=== PATIENT | female | born 1990 ===

== ENCOUNTER 2018-11-08 10:53 | Emergency (ER) | payer OTHER ==
[2018-11-08 11:03] VITALS: BP 139/87
--- NOTE | 2018-11-08 11:44 | Emergency Department Report ---
Minor Respiratory - HPI Chief Complaint: Upper Respiratory Infection Stated Complaint: SOB/HEADACHE/COUGH Time Seen by Provider: 11/08/18 11:19 Duration: 1 week Pain Location: Throat Minor Respiratory: Yes Sore Throat, Yes Able to Tolerate Fluids, Yes Cough, Yes Sick Contacts, No Rhinorrhea, No Ear Pain, No Hemoptysis, No Chest Pain, No Shortness of Breath, No Fever Other History: 27-year-old -Serbian female presents to the emergency room for one week history of sore throat, headache, shortness of breath, body aches, painful cough, stuffy nose and coughing up mucus for 1 week. Patient reports taking DayQuil and NyQuil which helps but does not completely goes away. Patient reports she's had some dizziness and sneezing some nausea but no vomiting. ED Review of Systems ROS: Stated complaint: SOB/HEADACHE/COUGH Other details as noted in HPI ENT: throat pain, congestion Respiratory: cough, shortness of breath Cardiovascular: denies: chest pain, palpitations Endocrine: no symptoms reported Gastrointestinal: denies: abdominal pain, nausea, diarrhea Genitourinary: denies: urgency, dysuria, discharge Musculoskeletal: denies: back pain, joint swelling, arthralgia Skin: denies: rash, lesions Neurological: denies: headache, weakness, paresthesias Psychiatric: denies: anxiety, depression Hematological/Lymphatic: denies: easy bleeding, easy bruising ED Past Medical Hx - Past Medical History Previous Medical History?: No - Surgical History Past Surgical History?: No - Social History Smoking Status: Never Smoker Substance Use Type: Alcohol, Marijuana - Medications Home Medications: Home Medications Medication Instructions Recorded Confirmed Last Taken Type Benzonatate [Tessalon Perles] 100 mg PO Q8HR #15 capsule 11/08/18 Unknown Rx Cetirizine HCl [Zyrtec 10mg tab] 10 mg PO QDAY #30 tablet 11/08/18 Unknown Rx Fluticasone [Flonase] 1 spray NS QDAY #1 bottle 11/08/18 Unknown Rx Minor Respiratory Exam - Exam General: Vital signs noted. No distress. Alert and acting appropriately. HEENT: Yes Moist Mucous Membranes, Yes Frontal Tenderness, No Pharyngeal Erythema, No Pharyngeal Exudates, No Rhinorrhea, No Conjuctival Injection, No Maxillary Tenderness Ear: Neither TM Bulge, Neither TM Erythema, Neither EAC Pain, Neither EAC Discharge Neck: Yes Supple, No Adenopathy Lungs: Yes Good Air Exchange, Yes Cough, No Wheezes, No Ronchi, No Stridor, No Labored Respirations, No Retractions, No Use of Accessory Muscles, No Other Abnormal Lung Sounds Abdomen: Yes Normal Bowel Sounds, No Tenderness, No Peritoneal Signs Skin: No Rash, No Edema Neurologic: Alert and oriented, no deficits. Musculoskeletal: Unremarkable. ED Course Vital Signs 11/08/18 11:01 Temperature 97.9 F Pulse Rate 80 Respiratory 20 Rate Blood Pressure 139/87 O2 Sat by Pulse 100 Oximetry ED Medical Decision Making - Medical Decision Making 27-year-old female comes in for URI symptoms. The strips in for evaluation.Rapid strep was sent to lab. Vision appears to have allergic rhinitis. We'll place patient on Zyrtec 10 mg daily Flonase 1 spray to daily and Tessalon Perles 100 mg by mouth 3 times a day when necessary. Critical care attestation.: If time is entered above; I have spent that time in minutes in the direct care of this critically ill patient, excluding procedure time. ED Disposition Clinical Impression: Allergic rhinitis Qualifiers: Allergic rhinitis trigger: unspecified Allergic rhinitis seasonality: unspecified Qualified Code(s): J30.9 - Allergic rhinitis, unspecified Disposition: DC-01 TO HOME OR SELFCARE Is pt being admited?: No Does the pt Need Aspirin: No Condition: Stable Instructions: Allergic Rhinitis (ED) Additional Instructions: Take medications as prescribed. Ibuprofen or Tylenol as needed for pain. Prescriptions: Fluticasone [Flonase] 1 spray NS QDAY #1 bottle Benzonatate [Tessalon Perles] 100 mg PO Q8HR #15 capsule Cetirizine HCl [Zyrtec 10mg tab] 10 mg PO QDAY #30 tablet Referrals: [facility] [Outside] - 3-5 Days Forms: Work/School Release Form(ED)
== END 2018-11-08 12:46 | disposition home or self-care (01) ==
LOC: ED 10:53
DX: J30.9 Allergic rhinitis, unspecified (principal); F12.10 Cannabis abuse, uncomplicated
CPT/HCPCS: 87116; 87430; 99283